=== PATIENT | male | born 1980 | race Caucasian/White ===

== ENCOUNTER 2018-12-13 10:08 | Emergency (ER) | payer SELFPAY ==
[~2018-12-13] VITALS: Ht 182.9 cm; Wt 106.6 kg
[2018-12-13] MEDS ORDERED: D-ME118S2 PO (11:01)
[2018-12-13] MEDS ORDERED: ALBU2.5V8 INH (11:01)
[2018-12-13] MEDS ORDERED: LEVO750T31 PO (11:01)
[2018-12-13] MEDS ORDERED: LANS15CA78 PO (11:01)
[2018-12-13] MEDS ORDERED: LISI-334 PO (11:01)
--- NOTE | 2018-12-13 11:01 | PHYS DOC ---
Past History Past Medical History: Hypertension Past Surgical History: Other Alcohol Use: None Drug Use: Marijuana, Methamphetamine Social History Narrative: QUITE JUL 2018 Adult General Chief Complaint Chief Complaint: COUGH HPI HPI Patient is a 38-year-old male who presents with several complaints. One, he needs a refill of his blood pressure medicine. He was recently released from alf where he was on a medication that begins with "L" and was at 40 mg. This was discontinued as he was released from alf approximately a week ago. Denies any chest pain, palpitations, leg swelling. Second complaint is cough. This has also been present for approximately the past week. Notes that he is producing a muddy colored sputum. Worse with laying down. Patient is a former smoker having stopped in July 2018. Third complaint is heartburn. This has been present for 6 days, worse at the beginning of that and doing better over the last several days. Nothing makes it better, he has taken no medicines for this. It is worse with laying flat. No worsening with exertion. Patient of the discomfort. It is a burning sensation.[] Review of Systems Review of Systems Constitutional: Denies fever or chills [] Eyes: Denies change in visual acuity, redness, or eye pain [] HENT: Denies nasal congestion or sore throat [] Respiratory: See history of present illness[] Cardiovascular: See history of present illness[] GI: Denies abdominal pain, nausea, vomiting, bloody stools or diarrhea [] : Denies dysuria or hematuria [] Musculoskeletal: Denies back pain or joint pain [] Integument: Denies rash or skin lesions [] Neurologic: Denies headache, focal weakness or sensory changes [] Endocrine: Denies polyuria or polydipsia [] All other systems were reviewed and found to be within normal limits, except as documented in this note. Allergies Allergies Allergies Coded Allergies Type Severity Reaction Last Updated Verified No Known Drug Allergies 12/13/18 No Physical Exam Physical Exam Constitutional: Well developed, well nourished, no acute distress, non-toxic appearance. [] HENT: Normocephalic, atraumatic, bilateral external ears normal, TMs are clear, no blood, no fluid, oropharynx moist, no oral exudates, nose normal. [] Eyes: PERRLA, EOMI, conjunctiva normal, no discharge. [] Neck: Normal range of motion, no tenderness, supple, no stridor. [] Cardiovascular:Heart rate regular rhythm, no murmur [] Lungs & Thorax: Bilateral breath sounds clear to auscultation [] Abdomen: Bowel sounds normal, soft, no tenderness, no masses, no pulsatile masses. [] Skin: Warm, dry, no erythema, no rash. [] Back: No tenderness, no CVA tenderness. [] Extremities: No tenderness, no cyanosis, no clubbing, ROM intact, no edema. [] Neurologic: Alert and oriented X 3, normal motor function, normal sensory function, no focal deficits noted. [] Psychologic: Affect normal, judgement normal, mood normal. [] Current Patient Data Vital Signs Vital Signs Date Time Temp Pulse Resp B/P (MAP) Pulse Ox O2 Delivery O2 Flow Rate FiO2 12/13/18 10:29 97.4 103 18 95 Room Air EKG EKG [] Radiology/Procedures Radiology/Procedures [] Course & Med Decision Making Course & Med Decision Making Pertinent Labs and Imaging studies reviewed. (See chart for details) Medical decision making: Patient has a very good blood pressure today. Will prescribe lisinopril, 20 mg at this point with instructions for patient to follow-up with a primary care physician and we'll give him points of contact for primary care physician. Given his recent incarceration we'll cover him for bronchitis. There is no evidence of hypoxia. Nontoxic patient will provide him phylactic antibiotic therapy.[] Dragon Disclaimer Dragon Disclaimer This electronic medical record was generated, in whole or in part, using a voice recognition dictation system. Departure Departure: Impression: Primary Impression: Bronchitis Additional Impressions: GERD (gastroesophageal reflux disease) History of hypertension Disposition: 01 HOME, SELF-CARE Condition: IMPROVED Referrals: RAFAEL CALLAHAN (PCP) Follow-up in 2 days Patient Instructions: Bronchitis, DASH Diet, Diet for Gastroesophageal Reflux Disease, Adult, Gastroesophageal Reflux Disease, Adult, Hypertension Additional Instructions: Drink plenty of fluids. Follow-up with your regular doctor, if you do not have regular doctor a list of local clinics will be provided for you. Into the ER if worsening difficulty breathing or any other concerns. Scripts Lansoprazole (PREVACID) 15 Mg Capsule.dr 1 CAP PO DAILY for GERD, #30 CAP Prov: DAVIAN CHATTERJEE DO 12/13/18 Levofloxacin (LEVAQUIN) 750 Mg Tablet 1 TAB PO DAILY for bronchitis, #10 TAB Prov: DAVIAN CHATTERJEE DO 12/13/18 Albuterol Sulfate (PROVENTIL HFA INHALER) 6.7 Gm Hfa.aer.ad 1 PUFF INH PRN Q4HRS PRN for FOR ASTHMA, #1 INHALER 0 Refills Prov: DAVIAN CHATTERJEE DO 12/13/18 D-Methorphan Hb/Prometh Hcl (PROMETHAZINE-DM SYRUP) 118 Ml Syrup 5 ML PO PRN Q4HRS for CONGESTION, #120 ML Prov: DAVIAN CHATTERJEE DO 12/13/18 Lisinopril (LISINOPRIL) 20 Mg Tablet 1 TAB PO DAILY for hypertension, #30 TAB 0 Refills Prov: DAVIAN CHATTERJEE DO 12/13/18 Problem Qualifiers Additional Impressions: GERD (gastroesophageal reflux disease) Esophagitis presence: esophagitis presence not specified Qualified Codes: K21.9 - Gastro-esophageal reflux disease without esophagitis DAVIAN CHATTERJEE DO Dec 13, 2018 11:01
[2018-12-13 11:07] VITALS: BP 136/86
== END 2018-12-13 11:07 | disposition home or self-care (01) ==
LOC: ER 10:08
DX: J40 Bronchitis, not specified as acute or chronic (principal); K21.9 Gastro-esophageal reflux disease without esophagitis; I10 Essential (primary) hypertension; Z76.0 Encounter for issue of repeat prescription; Z87.891 Personal history of nicotine dependence
CPT/HCPCS: 99283